=== PATIENT | female | born 1975 | race Hispanic/Latino ===

== ENCOUNTER 2017-06-18 11:11 | Emergency (ER) | payer SELFPAY ==
[2017-06-18] MEDS ORDERED: ONDANSETRON ODT 4 MG TAB ONE (11:38)
[2017-06-18 11:55] LABS: APPEARANCE,URINE Cloudy (CLEAR); BILIRUBIN,URINE Negative (NEGATIVE); COLOR,URINE Yellow (YELLOW); GLUCOSE, URINE (UA) >=1000 mg/dL (NEGATIVE); KETONES,URINE 15 mg/dL (NEGATIVE); LEUKOCYTE ESTERASE ,URINE Negative (NEGATIVE); NITRATE,URINE Positive (NEGATIVE); OCCULT BLOOD,URINE Large (NEGATIVE); PROTEIN,URINE POS 1+ (NEGATIVE)
[2017-06-18 12:02] LABS: BACTERIA,URINE Many /HPF (None Seen); RBC,URINE >100 /HPF (0-1); SQUAMOUS EPITHELIAL CELL,UR Few /HPF (0-2)
[2017-06-18] MEDS ORDERED: LIDOCAINE HCL-MPF 1% 2ML VIAL ONE (12:14)
[2017-06-18] MEDS ORDERED: CEFTRIAXONE SODIUM 1 GM ONE (12:14)
== END 2017-06-18 12:41 | disposition home or self-care (01) ==
LOC: EDH 11:11
DX: N39.0 Urinary tract infection, site not specified (principal); E11.65 Type 2 diabetes mellitus with hyperglycemia
CPT/HCPCS: 81001; 96372; 99283; J0696; J3490

== ENCOUNTER 2018-12-10 16:17 | Emergency (ER) | payer OTHER ==
[2018-12-10] MEDS ORDERED: METOCLOPRAMIDE 10 MG/2 ML VIAL ONE ×2 (16:41→16:55)
[2018-12-10] MEDS ORDERED: DICYCLOMINE HCL 10 MG/ML 2ML AMP IM ONE ×2 (16:41→16:54)
[2018-12-10] MEDS ORDERED: SODIUM CHLORIDE 0.9% 1000ML 1,000 ML IV ONE (16:42)
[2018-12-10] MEDS ORDERED: FAMOTIDINE/PF 20 MG/2 ML VIAL IV ONE ×2 (16:42→16:54)
[2018-12-10 16:47] LABS: BASOPHILS % (AUTO) 0.3 % (0.0-5.0); EOSINOPHILS % (AUTO) 0.8 % (0.0-8.0); HEMATOCRIT 25.8 % (36-48); LYMPHOCYTES % (AUTO) 22.5 % (21.0-51.0); MEAN CORPUSCULAR HEMOGLOBIN 16.9 pg (27.0-33.0); MEAN CORPUSCULAR HGB CONC 29.4 g/dL (32.0-36.0); MEAN CORPUSCULAR VOLUME 57.6 fL (79-99); MONOCYTES % (AUTO) 8.2 % (3.0-13.0); NEUTROPHILS % (AUTO) 68.2 % (40.0-77.0); PLATELET COUNT (AUTO) 352 K/uL (130-400); RED BLOOD CELL COUNT(AUTO) 4.48 MIL/uL (4.00-5.50); WHITE BLOOD COUNT (AUTO) 7.7 K/uL (4.8-10.8)
[2018-12-10 17:03] LABS: CREATININE 0.7 mg/dL (0.5-1.5); POTASSIUM 4.1 mmol/L (3.5-5.1)
[2018-12-10 17:05] LABS: APPEARANCE,URINE Clear (CLEAR); BILIRUBIN,URINE Negative (NEGATIVE); COLOR,URINE Yellow (YELLOW); GLUCOSE, URINE (UA) >=1000 mg/dL (NEGATIVE); KETONES,URINE Trace mg/dL (NEGATIVE); LEUKOCYTE ESTERASE ,URINE Negative (NEGATIVE); NITRATE,URINE Negative (NEGATIVE); OCCULT BLOOD,URINE Negative (NEGATIVE); PROTEIN,URINE Negative (NEGATIVE); UROBILINOGEN,URINE 0.2 mg/dL (0.2-1.0)
[2018-12-10 17:08] LABS: ALBUMIN 3.6 g/dL (3.5-5.0); BILIRUBIN,TOTAL 0.3 mg/dL (0.2-1.0); TOTAL PROTEIN, SERUM 7.7 g/dL (6.0-8.3)
[2018-12-10 17:15] LABS: HCG,QUAL RESULT NEGATIVE (NEGATIVE)
[2018-12-10] MEDS ORDERED: LIDOCAINE HCL 2% VISCOUS 15 ML UDCUP ONE (18:32)
[2018-12-10] MEDS ORDERED: MAG HYDROX/AL HYDROX/SIMETH ES 30 ML SUSP UDCUP ONE (18:32)
== END 2018-12-10 19:14 | disposition home or self-care (01) ==
LOC: EDH 16:17
DX: K29.70 Gastritis, unspecified, without bleeding (principal); D50.9 Iron deficiency anemia, unspecified; E11.9 Type 2 diabetes mellitus without complications
CPT/HCPCS: 36415; 76705; 80053; 81003; 81025; 82270; 83690; 85025; 93005; 96361; 96372; 96374; 96375; 99285; J0500 ×2; J2765 ×2; J3490; J7030